=== PATIENT | female | born 1930 | race Caucasian/White ===

== ENCOUNTER → 2019-01-02 | Outpatient (CLI) | payer BC ==
[~2019-01-02] MED LIST: ACTOS15 MG PO; AMOXICILLIN500 M1 PO; ASPIRIN325 PO; BACTRIM DS TAB1 EACH PO; CELEBREX 200 M200 MG PO; COLACE100 MG PO; CYMBALTA60 MG PO; ESTROVEN JOINT1 EACH PO; FISHOIL; FOLIC ACID; FUROSEMIDE 20 M20 MG; GLUCOPHAGE500 MG PO; INDERAL80 MG PO; IRON; K-DUR10 ME1 PO; LISINOPRIL20 MG PO; OS-CAL 500+D C1 EACH PO; PYRIDOXINE HCL100 MG PO; SANCTURA XR60 M1 PO; VITAMIN B-12250 MCG PO; VITAMIN D400 UNI1 PO; VITAMINC500 PO; VYTORIN 10-801 EACH PO; XANAX 0.5 MG0.5 M1 PO; [UNRECOGNIZED DRUG - CODE]
== END ==
LOC: M.INFUS 08:00
DX: T84.52XA Infection and inflammatory reaction due to internal left hip prosthesis, initial encounter (principal); Y83.8 Other surgical procedures as the cause of abnormal reaction of the patient, or of later complication, without mention of misadventure at the time of the procedure

== ENCOUNTER → 2019-01-04 | Outpatient (CLI) | payer BC ==
--- NOTE | 2019-01-04 11:05 | NUR ---
PATIENT ARRIVAL WITH WALKER TO OP INFUSION LAB WITH DAUGHTER PRESENT. ASSISTED INTO RECLINER FOR COMFORT. CALL LIGHT AND REMOTE GIVEN TO PATIENT. HISTORY AND ORDERS REVIEWED. REASSESSMENT AND VS OBTAINED. RT UPPER ARM PICC LINE IN PLACE WITH DRESSING C/D/I. BRISK BLOOD RETURN OBTAINED WITH LABS DRAWN ORDERED. PICC FLUSHES WELL. ANTIBIOTIC MEDICATION THEN STARTED ONCE AVAILABLE FROM PHARMACY.
[2019-01-04 11:08] VITALS: BP 95/48
[2019-01-04 11:25] LABS: HEMATOCRIT 27.1 % (37.0-47.0); MCH 29.6 pg (26.0-34.0); MCHC 33.2 g/dL (28.0-37.0); MCV 89.2 fL (80.0-100.0); MPV 7.3 fl. (7.2-11.1); RBC 3.04 mil/uL (4.20-5.00); RDW-CV 16.5 % (10.5-14.5); WBC 7.6 thou/uL (4.0-11.0)
[2019-01-04 11:44] LABS: ALBUMIN 2.3 g/dL (3.4-5.0); CALCIUM 8.7 mg/dL (8.5-10.1); POTASSIUM 3.7 mmol/L (3.5-5.1); TOTAL BILIRUBIN 0.6 mg/dL (<0.1-1.0); TOTAL PROTEIN 6.2 g/dL (6.4-8.2)
[2019-01-04 12:18] VITALS: BP 137/55
--- NOTE | 2019-01-04 12:18 | NUR ---
ANTIBIOTIC INFUSION COMPLETED WITHOUT PROBLEMS. PATIENT DENIES QUESTIONS OR CONCERNS. RT UPPER ARM PICC LINE FLUSHED WITH NS AND PATIENT DEPARTS FOR HOME AMBULATORY WITH WALKER, ACCOMPANIED BY DAUGHTER.
--- NOTE | 2019-01-04 13:35 | NUR ---
LAB RESULTS FAXED TO DR. ARENAS AND DR. CRUM ORDERED.
== END ==
LOC: M.INFUS 04:57
PROVIDERS: Internal Medicine Infectious Disease
DX: T81.49XA Infection following a procedure, other surgical site, initial encounter (principal); T84.031A Mechanical loosening of internal left hip prosthetic joint, initial encounter; X58.XXXA Exposure to other specified factors, initial encounter

== ENCOUNTER → 2019-01-06 | Outpatient (CLI) | payer BC ==
[2019-01-06 12:55] VITALS: BP 100/53
--- NOTE | 2019-01-06 14:17 | NUR ---
PATIENT COMPLETED ANTIBIOTIC INFUSION WITH NO DIFFICULTY. PICC DRESSING CHANGED, PATIENT REQUESTED LABS FROM [facility]. MEDICAL RECORDE RELEASE SIGNED AND FAXED TO [facility]. LABS COPIED AND FAXED BACK TO UNIT. PATIENT DISCHARGED TO HOME.
== END ==
LOC: M.INFUS 04:37
DX: T81.49XA Infection following a procedure, other surgical site, initial encounter (principal); T84.031A Mechanical loosening of internal left hip prosthetic joint, initial encounter

== ENCOUNTER → 2019-01-08 | Outpatient (CLI) | payer BC | LOC: M.INFUS 08:00 | DX: T81.49XA Infection following a procedure, other surgical site, initial encounter (principal); T84.031A Mechanical loosening of internal left hip prosthetic joint, initial encounter; Y83.8 Other surgical procedures as the cause of abnormal reaction of the patient, or of later complication, without mention of misadventure at the time of the procedure ==

== ENCOUNTER → 2019-01-10 | Outpatient (CLI) | payer BC ==
[2019-01-10 12:55] VITALS: BP 122/64
[2019-01-10 13:49] LABS: ABSOLUTE BASOPHILS 0.1 thou/uL (0.0-0.2); ABSOLUTE EOSINOPHILS 0.2 thou/uL (0.0-0.7); ABSOLUTE MONOCYTES 1.1 thou/uL (0.0-1.2); ABSOLUTE NEUTROPHILS 4.7 thou/uL (1.6-8.1); BASOPHILS 1.3 %; EOSINOPHILS 2.6 %; HEMATOCRIT 26.4 % (37.0-47.0); HEMOGLOBIN 8.9 gm/dL (12.0-15.0); LYMPHOCYTES 13.4 %; MCHC 33.6 g/dL (28.0-37.0); MCV 89.2 fL (80.0-100.0); MONOCYTES 15.9 %; MPV 7.5 fl. (7.2-11.1); NUCLEATED RBCS 0 /100WBC; PLATELET COUNT* 377 thou/uL (150-400); POLYS 66.8 %; RBC 2.96 mil/uL (4.20-5.00); RDW-CV 16.1 % (10.5-14.5); WBC 7.1 thou/uL (4.0-11.0)
[2019-01-10 14:03] LABS: ALBUMIN 2.5 g/dL (3.4-5.0); CREATININE 2.1 mg/dL (0.6-1.3); POTASSIUM 4.1 mmol/L (3.5-5.1); TOTAL BILIRUBIN 0.5 mg/dL (<0.1-1.0); TOTAL PROTEIN 6.4 g/dL (6.4-8.2)
[2019-01-10 14:54] LABS: ESR (SEDRATE) 47 mm/hr (0-30)
== END ==
LOC: M.INFUS 01:17
PROVIDERS: Internal Medicine Infectious Disease
DX: T84.031A Mechanical loosening of internal left hip prosthetic joint, initial encounter (principal); T81.89XA Other complications of procedures, not elsewhere classified, initial encounter; Y83.8 Other surgical procedures as the cause of abnormal reaction of the patient, or of later complication, without mention of misadventure at the time of the procedure

== ENCOUNTER → 2019-01-12 | Outpatient (CLI) | payer BC ==
[2019-01-12 13:05] VITALS: BP 139/54
[2019-01-12 13:45] VITALS: BP 147/72
--- NOTE | 2019-01-12 14:25 | NUR ---
ARRIVED PER WHEELCHAIR. MADE SLEF COMFORTABLE IN RECLINER. DENEIS ADVERSE REACTION TO MULTIPLE INFUSION OF SAME. INFUSION COMPLETED AND TOLERATED WELL. PICC FLUSHED. DENEIS NEEDS AT DISCHARGE.
== END ==
LOC: M.INFUS 05:13
DX: T81.49XA Infection following a procedure, other surgical site, initial encounter (principal); T84.031A Mechanical loosening of internal left hip prosthetic joint, initial encounter

== ENCOUNTER → 2019-01-14 | Outpatient (CLI) | payer BC ==
[2019-01-14 12:45] VITALS: BP 133/64
[2019-01-14 12:51] LABS: HEMATOCRIT 23.8 % (37.0-47.0); MCH 29.8 pg (26.0-34.0); MCHC 33.8 g/dL (28.0-37.0); MCV 88.2 fL (80.0-100.0); NUCLEATED RBCS 0 /100WBC; PLATELET COUNT* 303 thou/uL (150-400); WBC 5.9 thou/uL (4.0-11.0)
[2019-01-14 13:08] LABS: ABSOLUTE EOSINOPHILS 0.2 thou/uL (0.0-0.7); ABSOLUTE LYMPHOCYTES 0.7 thou/uL (0.8-5.3); ABSOLUTE MONOCYTES 0.8 thou/uL (0.0-1.2); ABSOLUTE NEUTROPHILS 4.2 thou/uL (1.6-8.1); ALBUMIN 2.5 g/dL (3.4-5.0); CALCIUM 9.4 mg/dL (8.5-10.1); CREATININE 1.8 mg/dL (0.6-1.3); PHOSPHORUS* 4.6 mg/dL (2.5-4.9); PLATELET ESTIMATE ADEQUATE; POTASSIUM 3.6 mmol/L (3.5-5.1)
[2019-01-14 13:09] LABS: ANISOCYTOSIS 1+; CALCIUM 8.9 mg/dL (8.5-10.1); CREATININE 1.8 mg/dL (0.6-1.3); OVALOCYTES Occasional; PHOSPHORUS* 4.6 mg/dL (2.5-4.9); POIKILOCYTOSIS 1+; POLYCHROMASIA Occasional
[2019-01-14 13:37] LABS: URINE BILIRUBIN NEGATIVE (Negative); URINE BLOOD NEGATIVE (Negative); URINE CLARITY CLEAR; URINE COLOR YELLOW; URINE GLUCOSE-RANDOM NEGATIVE (Negative); URINE KETONES NEGATIVE (Negative); URINE LEUKOCYTES-REFLEX NEGATIVE (Negative); URINE NITRITE-REFLEX NEGATIVE (Negative); URINE PROTEIN TRACE (Negative); URINE SPECIFIC GRAVITY >= 1.030 (1.005-1.030); URINE UROBILINOGEN 0.2 E.U./dl (0.2-1.0)
--- NOTE | 2019-01-14 13:43 | NUR ---
ARRIVED AMBULATORY, MADE SELF COMFORTABLE IN RECLINER. PT HAS ADDITIONAL ORDER FOR LAB DRAW FROM HEALTHCARE ADMINISTRATOR. LAB DRAWN FROM PICC. PICC DRESSING CHANGED. INFUSION COMPLETED AND TOLERATED WELL. UA TAKEN TO LAB PRIOR TO LEAVING. YURY NEEDS AT DISCHARGE.
== END ==
LOC: M.INFUS 05:04
PROVIDERS: Internal Medicine Nephrology
DX: T81.89XA Other complications of procedures, not elsewhere classified, initial encounter (principal); T84.031A Mechanical loosening of internal left hip prosthetic joint, initial encounter; E11.9 Type 2 diabetes mellitus without complications; I10 Essential (primary) hypertension; Z09 Encounter for follow-up examination after completed treatment for conditions other than malignant neoplasm; Y83.8 Other surgical procedures as the cause of abnormal reaction of the patient, or of later complication, without mention of misadventure at the time of the procedure

== ENCOUNTER → 2019-01-16 | Outpatient (CLI) | payer BC ==
[~2019-01-16] MED LIST changes: +AMITRIPTYLINE H10 M3 PO; +AMOXICILLIN 50500 MG PO; +ATORVASTATIN CA40 MG PO; +COREG6.25 MG PO; +COZAAR 25 MG TA25 M1 PO; +ELIQUIS2.5 MG PO; +ESTER-C 1,0001 EACH PO; +GLUCOSAMINE1000 MG PO; +HUMALOG100 UNIT/1 SUBQ; +IPRAT-ALBUT 0.5-3 ML INH; +IRON325 PO; +JANUVIA50 MG PO; +KLOR-CON 1010 MEQ PO; +LASIX 20 MG TAB20 MG PO; +LINZESS290 MCG PO; +LYRICA 75 MG CA75 MG PO; +MULTI VITAMIN1 EACH PO; +OXYBUTYNIN 5 MG5 M2 PO; +PREVACID15 MG PO; +TUMS PO
[2019-01-16 13:20] VITALS: BP 104/42
[2019-01-16 14:00] VITALS: BP 110/47
== END ==
LOC: M.INFUS 08:00
DX: T81.49XA Infection following a procedure, other surgical site, initial encounter (principal); T84.031A Mechanical loosening of internal left hip prosthetic joint, initial encounter; Y79.2 Prosthetic and other implants, materials and accessory orthopedic devices associated with adverse incidents; Y92.89 Other specified places as the place of occurrence of the external cause

== ENCOUNTER → 2019-01-28 | Outpatient (CLI) | payer BC ==
[~2019-01-28] MED LIST changes: -AMITRIPTYLINE H10 M3 PO; -AMOXICILLIN 50500 MG PO; -ATORVASTATIN CA40 MG PO; -COREG6.25 MG PO; -COZAAR 25 MG TA25 M1 PO; -ELIQUIS2.5 MG PO; -ESTER-C 1,0001 EACH PO; -GLUCOSAMINE1000 MG PO; -HUMALOG100 UNIT/1 SUBQ; -IPRAT-ALBUT 0.5-3 ML INH; -IRON325 PO; -JANUVIA50 MG PO; -KLOR-CON 1010 MEQ PO; -LASIX 20 MG TAB20 MG PO; -LINZESS290 MCG PO; -LYRICA 75 MG CA75 MG PO; -MULTI VITAMIN1 EACH PO; -OXYBUTYNIN 5 MG5 M2 PO; -PREVACID15 MG PO; -TUMS PO
[2019-01-28 13:18] VITALS: BP 101/40
--- NOTE | 2019-01-28 14:24 | NUR ---
ARRIVED AMBUILATORY. MADE SELF COMFORTABLE IN RECLINER. PICC INTACT AND PATENT. INFUSION COMPLETED AND TOLERATED WELL.
== END ==
LOC: M.INFUS 05:12
DX: E87.6 Hypokalemia (principal)

== ENCOUNTER → 2019-01-30 | Outpatient (CLI) | payer BC ==
[2019-01-30 14:05] VITALS: BP 89/44
--- NOTE | 2019-01-30 14:55 | NUR ---
ASSUMED CARE OF PT @ 1400 FOR OUTPATIENT INFUSION OF ANTIBIOTICS.PT WAS RESTING IN WHEELCHAIR WITH FRIEND AT BEDSIDE. BP WAS LOW @ 89/44 AND DOUBLE CHECKED BY NURSE.PT HAD NO C/O PAIN OR DISCOMFORT AT TIME OF ARRIVAL. PT CONFIRMED ALL CORRECT IDENTIFIERS.RIGHT BRACHIAL PICC PATENT AND SALINE LOCKED-NO REDNESS, EDEMA, OR DRAINAGE NOTED AT SITE.INFUSION OF DAPTOMYCIN INFUSED WITH NO COMPLICATIONS.INFUSION COMPLETED AT 1438 AND BP IMPROVED TO 119/74. PT DISCHARGED AFTER COMPLETION AND WHEELED OUT TO PERSONAL VEHICLE.
== END ==
LOC: M.INFUS 12:48
DX: T81.89XA Other complications of procedures, not elsewhere classified, initial encounter (principal); T84.031A Mechanical loosening of internal left hip prosthetic joint, initial encounter; Y83.8 Other surgical procedures as the cause of abnormal reaction of the patient, or of later complication, without mention of misadventure at the time of the procedure; Y93.89 Activity, other specified; Y92.89 Other specified places as the place of occurrence of the external cause; Y99.8 Other external cause status

== ENCOUNTER → 2019-02-01 | Outpatient (CLI) | payer BC ==
[~2019-02-01] MED LIST changes: +AMITRIPTYLINE H10 M3 PO; +AMOXICILLIN 50500 MG PO; +ATORVASTATIN CA40 MG PO; +COREG6.25 MG PO; +COZAAR 25 MG TA25 M1 PO; +ELIQUIS2.5 MG PO; +ESTER-C 1,0001 EACH PO; +GLUCOSAMINE1000 MG PO; +HUMALOG100 UNIT/1 SUBQ; +IPRAT-ALBUT 0.5-3 ML INH; +IRON325 PO; +JANUVIA50 MG PO; +KLOR-CON 1010 MEQ PO; +LASIX 20 MG TAB20 MG PO; +LINZESS290 MCG PO; +LYRICA 75 MG CA75 MG PO; +MULTI VITAMIN1 EACH PO; +OXYBUTYNIN 5 MG5 M2 PO; +PREVACID15 MG PO; +TUMS PO
[2019-02-01 11:30] VITALS: BP 133/74
[2019-02-01 11:42] LABS: HEMATOCRIT 28.6 % (37.0-47.0); HEMOGLOBIN 9.2 gm/dL (12.0-15.0); MCH 29.7 pg (26.0-34.0); MCHC 32.3 g/dL (28.0-37.0); MPV 8.6 fl. (7.2-11.1); NUCLEATED RBCS 0 /100WBC; PLATELET COUNT* 334 thou/uL (150-400); RBC 3.11 mil/uL (4.20-5.00); WBC 13.1 thou/uL (4.0-11.0)
[2019-02-01 12:07] LABS: ALBUMIN 2.8 g/dL (3.4-5.0); CALCIUM 9.8 mg/dL (8.5-10.1); CREATININE 2.2 mg/dL (0.6-1.3); POTASSIUM 3.9 mmol/L (3.5-5.1); TOTAL BILIRUBIN 0.7 mg/dL (<0.1-1.0); TOTAL PROTEIN 6.3 g/dL (6.4-8.2)
[2019-02-01 12:10] LABS: ABSOLUTE EOSINOPHILS 0.3 thou/uL (0.0-0.7); ABSOLUTE LYMPHOCYTES 0.9 thou/uL (0.8-5.3); ABSOLUTE MONOCYTES 1.7 thou/uL (0.0-1.2); ABSOLUTE NEUTROPHILS 10.2 thou/uL (1.6-8.1); METAMYELOCYTES 2 %; MYELOCYTES 1 %
[2019-02-01 12:11] LABS: PLATELET ESTIMATE ADEQUATE; TOXIC GRANULATION 1+
[2019-02-01 12:13] LABS: MICROCYTES 1+
[2019-02-01 12:15] LABS: SCHISTOCYTES 1+
[2019-02-01 12:47] LABS: ESR (SEDRATE) 20 mm/hr (0-30)
== END ==
LOC: M.INFUS 01:48
DX: T81.89XA Other complications of procedures, not elsewhere classified, initial encounter (principal); T14.8XXA Other injury of unspecified body region, initial encounter; Y83.8 Other surgical procedures as the cause of abnormal reaction of the patient, or of later complication, without mention of misadventure at the time of the procedure; Y93.89 Activity, other specified; Y92.89 Other specified places as the place of occurrence of the external cause; Y99.8 Other external cause status

== ENCOUNTER → 2019-02-03 | Outpatient (CLI) | payer BC | LOC: M.INFUS 02:35 | DX: T81.40XA Infection following a procedure, unspecified, initial encounter (principal); T14.8XXA Other injury of unspecified body region, initial encounter; Y83.8 Other surgical procedures as the cause of abnormal reaction of the patient, or of later complication, without mention of misadventure at the time of the procedure; Y93.89 Activity, other specified; Y92.89 Other specified places as the place of occurrence of the external cause; Y99.8 Other external cause status ==

== ENCOUNTER → 2019-02-05 | Outpatient (CLI) | payer BC | LOC: M.INFUS 13:00 | DX: T81.40XA Infection following a procedure, unspecified, initial encounter (principal); Y83.8 Other surgical procedures as the cause of abnormal reaction of the patient, or of later complication, without mention of misadventure at the time of the procedure; Y93.89 Activity, other specified; Y92.89 Other specified places as the place of occurrence of the external cause; Y99.8 Other external cause status ==

== ENCOUNTER → 2019-02-07 | Outpatient (CLI) | payer BC ==
[2019-02-07 14:40] LABS: ABSOLUTE BASOPHILS 0.1 thou/uL (0.0-0.2); ABSOLUTE EOSINOPHILS 0.1 thou/uL (0.0-0.7); ABSOLUTE LYMPHOCYTES 0.6 thou/uL (0.8-5.3); ABSOLUTE MONOCYTES 0.8 thou/uL (0.0-1.2); ABSOLUTE NEUTROPHILS 5.7 thou/uL (1.6-8.1); BASOPHILS 1.3 %; EOSINOPHILS 1.5 %; HEMATOCRIT 21.7 % (37.0-47.0); LYMPHOCYTES 8.2 %; MCH 29.7 pg (26.0-34.0); MCHC 32.3 g/dL (28.0-37.0); MCV 91.9 fL (80.0-100.0); MONOCYTES 11.4 %; MPV 8.4 fl. (7.2-11.1); NUCLEATED RBCS 0 /100WBC; PLATELET COUNT* 244 thou/uL (150-400); POLYS 77.6 %; RBC 2.37 mil/uL (4.20-5.00); RDW-CV 18.2 % (10.5-14.5); WBC 7.3 thou/uL (4.0-11.0)
[2019-02-08 02:05] LABS: GLYCOHEMOGLOBIN (HGB A1C) 5.3 % (4.8-5.6)
== END ==
LOC: M.INFUS 13:00
PROVIDERS: Internal Medicine Infectious Disease
DX: T81.49XD Infection following a procedure, other surgical site, subsequent encounter (principal); E11.9 Type 2 diabetes mellitus without complications; Y83.8 Other surgical procedures as the cause of abnormal reaction of the patient, or of later complication, without mention of misadventure at the time of the procedure

== ENCOUNTER 2019-02-08 11:51 | Emergency (ER) | payer BC ==
[~2019-02-08] VITALS: Ht 165.1 cm; Wt 96.2 kg
[~2019-02-08 11:51] MED LIST changes: -AMITRIPTYLINE H10 M3 PO; -AMOXICILLIN 50500 MG PO; -ATORVASTATIN CA40 MG PO; -COREG6.25 MG PO; -COZAAR 25 MG TA25 M1 PO; -ELIQUIS2.5 MG PO; -ESTER-C 1,0001 EACH PO; -GLUCOSAMINE1000 MG PO; -HUMALOG100 UNIT/1 SUBQ; -IPRAT-ALBUT 0.5-3 ML INH; -IRON325 PO; -JANUVIA50 MG PO; -KLOR-CON 1010 MEQ PO; -LASIX 20 MG TAB20 MG PO; -LINZESS290 MCG PO; -LYRICA 75 MG CA75 MG PO; -MULTI VITAMIN1 EACH PO; -OXYBUTYNIN 5 MG5 M2 PO; -PREVACID15 MG PO; -TUMS PO
[2019-02-08] MEDS ORDERED: ATORVASTATIN CA40 MG PO (12:09)
[2019-02-08] MEDS ORDERED: COREG6.25 MG PO (12:09)
[2019-02-08] MEDS ORDERED: PREVACID15 MG PO (12:09)
[2019-02-08] MEDS ORDERED: LYRICA 75 MG CA75 MG PO (12:09)
[2019-02-08] MEDS ORDERED: LASIX 20 MG TAB20 MG PO (12:10)
[2019-02-08] MEDS ORDERED: COZAAR 25 MG TA25 M1 PO (12:10)
[2019-02-08] MEDS ORDERED: AMOXICILLIN 50500 MG PO (12:10)
[2019-02-08] MEDS ORDERED: HUMALOG100 UNIT/1 SUBQ (12:10)
[2019-02-08] MEDS ORDERED: KLOR-CON 1010 MEQ PO (12:11)
[2019-02-08] MEDS ORDERED: OXYBUTYNIN 5 MG5 M2 PO (12:11)
[2019-02-08] MEDS ORDERED: GLUCOSAMINE1000 MG PO (12:11)
[2019-02-08] MEDS ORDERED: ESTER-C 1,0001 EACH PO (12:11)
[2019-02-08] MEDS ORDERED: TUMS PO (12:12)
[2019-02-08 12:29] LABS: ABSOLUTE BASOPHILS 0.1 thou/uL (0.0-0.2); ABSOLUTE EOSINOPHILS 0.2 thou/uL (0.0-0.7); ABSOLUTE LYMPHOCYTES 0.6 thou/uL (0.8-5.3); ABSOLUTE NEUTROPHILS 5.5 thou/uL (1.6-8.1); BASOPHILS 0.7 %; EOSINOPHILS 2.1 %; HEMATOCRIT 22.7 % (37.0-47.0); HEMOGLOBIN 7.3 gm/dL (12.0-15.0); LYMPHOCYTES 8.1 %; MCH 29.4 pg (26.0-34.0); MCV 91.8 fL (80.0-100.0); MONOCYTES 13.4 %; MPV 8.2 fl. (7.2-11.1); NUCLEATED RBCS 0 /100WBC; PLATELET COUNT* 266 thou/uL (150-400); POLYS 75.7 %; RBC 2.47 mil/uL (4.20-5.00); WBC 7.3 thou/uL (4.0-11.0)
[2019-02-08 12:34] LABS: ANION GAP 9 mmol/L (7-16); BUN 40 mg/dL (7-18); CALCIUM 9.3 mg/dL (8.5-10.1); CHLORIDE 110 mmol/L (98-107); CO2 25 mmol/L (21-32); CREATININE 2.1 mg/dL (0.6-1.3); GLUCOSE 103 mg/dL (70-99); SODIUM 144 mmol/L (136-145)
[2019-02-08 12:35] LABS: APTT 32.2 Seconds (25.0-31.3); INR 1.1; PROTIME 10.8 Seconds (9.20-11.50)
[2019-02-08] MEDS ORDERED: AMITRIPTYLINE H10 M3 PO (12:42)
[2019-02-08 12:45] LABS: ALBUMIN 2.5 g/dL (3.4-5.0); ALKALINE PHOSPHATASE 29 U/L (46-116); NT-PRO BRAIN NAT PEPTIDE 4322 pg/mL (<300); SGOT 27 U/L (15-37); SGPT 25 U/L (30-65); TOTAL BILIRUBIN 0.5 mg/dL (<0.1-1.0); TOTAL PROTEIN 6.1 g/dL (6.4-8.2); TROPONIN-I LEVEL <0.06 ng/mL (<0.06)
[2019-02-08] MEDS ORDERED: MULTI VITAMIN1 EACH PO (12:46)
[2019-02-08] MEDS ORDERED: LINZESS290 MCG PO (12:46)
[2019-02-08] MEDS ORDERED: ELIQUIS2.5 MG PO (12:47)
[2019-02-08] MEDS ORDERED: JANUVIA50 MG PO (12:47)
[2019-02-08] MEDS ORDERED: IRON325 PO (12:47)
[2019-02-08] MEDS ORDERED: IPRAT-ALBUT 0.5-3 ML INH (12:48)
[2019-02-08 18:00] VITALS: BP 121/52
--- NOTE | 2019-02-09 11:18 | EKG ---
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 : [id number] Requested By: Johnny Dye Order Number: [id number] MD: Pardeep Morrissey Measurements Intervals [place] Rate: 74 P: 62 NC: 143 QRS: 0 QRSD: 156 T: 17 QT: 411 QTc: 456 Interpretive Statements Sinus rhythm Right bundle branch block Baseline wander in lead(s) V5,V6 No previous ECG available for comparison Electronically Signed On 02-09-2019 11:18:00 CDT by Pardeep Morrissey [email or web address] <ELECTRONICALLY SIGNED> By: Pardeep Morrissey MD, [facility] 02/09/19 1118 1232 1232 Pardeep Morrissey MD, FACC /EPI
== END 2019-02-08 18:00 | disposition short-term general hospital (02) ==
LOC: M.ERS 11:51
PROVIDERS: Family Medicine
DX: D64.9 Anemia, unspecified (principal); R06.00 Dyspnea, unspecified; E11.22 Type 2 diabetes mellitus with diabetic chronic kidney disease; N18.1 Chronic kidney disease, stage 1; Z79.4 Long term (current) use of insulin; Z88.2 Allergy status to sulfonamides